=== PATIENT | female | born 1965 | race Caucasian/White ===

== ENCOUNTER → 2020-09-20 | Outpatient (CLI) | payer OTHER ==
[2020-09-20] VITALS (8 sets, daily range): BP systolic 94–107; BP diastolic 51–83
[~2020-09-20] VITALS: Ht 162.6 cm; Wt 91.6 kg
[~2020-09-20] MED LIST: ELIQUIS5 MG PO; LIPITOR 40 MG T40 M1 PO; MIDODRINE HCL10 MG PO
[2020-09-20 14:26] LABS: HEMATOCRIT 44.4 % (37.0-47.0); HEMOGLOBIN 14.5 gm/dL (12.0-15.0); MCH 30.7 pg (26.0-34.0); MCHC 32.7 g/dL (28.0-37.0); MCV 93.9 fL (80.0-100.0); PLATELET COUNT 264 thou/uL (150-400); RBC 4.74 mil/uL (4.20-5.00); RDW 13.9 % (10.5-14.5); WBC 7.4 thou/uL (4.0-11.0)
[2020-09-20 14:36] LABS: CALCIUM 9.8 mg/dL (8.5-10.1); CREATININE 10.2 mg/dL (0.6-1.0); POTASSIUM 4.6 mmol/L (3.5-5.1)
[2020-09-20 14:40] LABS: INR 0.98; PROTIME 10.7 Seconds (10.5-12.1)
[2020-09-20 15:21] LABS: ABSOLUTE NEUTROPHILS 4.3 thou/uL (1.4-8.2); BASOPHILS 0.9 % (0.0-2.0); EOSINOPHILS 1.5 % (0.0-3.0); LYMPHOCYTES 32.2 % (24.0-44.0); MONOCYTES 7.3 % (1.0-8.0); POLYS 58.1 % (36.0-66.0)
--- NOTE | 2020-09-26 17:08 | PATH ---
[facility] [address] [address] PATHOLOGY RPT PROCEDURE Name: ADRIAN RENEE Dior Room #: REG [facility] M.Judd.#: [id number] Admission: 09/20/20 Date of : 61 Discharge: Report #: [id number] Path Case #: [id number] [facility] Accession Number: [id number] . 01 Material submitted: . PART A: bone - BONE MARROW BIOPSY PART B: bone - BONE MARROW ASPIRATE CLOT PART C: bone - BONE MARROW ASPIRATE SLIDES PART D: bone - BONE MARROW PERIPHERAL SMEARS PART E: bone - BONE MARROW SENDOUT . 01 Clinical history: . 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 . . 02 Diagnosis: Bone marrow aspirate, biopsy, cell clot and peripheral blood: - Peripheral blood with no diagnostic abnormalities. - Hypercellular bone marrow with trilineage hematopoiesis, erythroid hyperlasia, mild dyspoiesis and involvement by plasma cell dyscrasia (approximately 10-15% plasma cells by immunohistochemical staining. - See comment. (BALJITW:michele; 09/24/2020) . . . . . Special studies report received from [facility], [facility], [address], [place], [address], on case [id number], labeled with their number [id number], dated 09/25/2020. . Flow Cytometry: Hematologic Neoplasia Assessment . Clinical History . . Indication for Study Evaluation for plasma cell myeloma . Specimen Bone Marrow . Viability 91% (7AAD exclusion) . Interpretation Bone Marrow: [address] [address] PATHOLOGY RPT PROCEDURE Name: ADRIAN RENEE Room #: REG [facility].#: [id number] Admission: 09/20/20 Date of : 61 Discharge: Report #: [id number] Path Case #: [id number] Abnormal/monotypic plasma cell population (1.3% of sample), consistent with a plasma cell neoplastic process . Comments Plasma cells are typically underrepresented by flow cytometry. Correlation with all available clinical, laboratory, and morphologic data is recommended. If needed, FISH testing (myeloma panel, plasma cell enrichment) is available. Please contact us if further testing for this sample is needed. . Populations Analyzed Myeloid Blasts: 0.5% No significant immunophenotypic abnormalities Lymphocytes: 9% B-cells: 1.2%, polytypic/polyclonal sIg light chain pattern T-cells: no significant abnormalities of the markers tested CD4+ T-cells: 5.1% (including 0.6% CD57+ cells) CD8+ T-cells: 2.2% (including 1.2% CD57+ cells) CD4:CD8: 2.3 NK cells: 0.5% Neutrophilic Cells: 83% No significant abnormalities of the markers tested Monocytic Cells: 2% No significant abnormalities of the markers tested Eosinophils: 2% No relative increase Basophils: 0.6% No relative increase Plasma Cells: 1.3% 1) Abnormal plasma cells, 1.3% of sample, CD45-/+, CD19-, CD20-, CD38+ (bright), CD56+, CD117-, CD138+, HLA DR-, cIg kappa+ 2) Polytypic plasma cells, <0.01% of sample Hematogones: 0.1% Normal B-cell precursors Remaining CD45 0% No significant reactivity with the markers Negative Events/ tested (may represent unlysed red blood cells, Debris: erythroid precursors, platelets, debris, etc.) (erythroid precursors may be underrepresented due to sample lysis/processing) . Morphologic Evaluation A slide was reviewed for quality assurance assistant purposes only. . Specimen Description Cell Yield: 9.50 x 10 and 6 . Reagent(s) Used CD2, CD3, CD4, CD5, CD7, CD8, CD10, CD11b, CD13, CD14, CD16, CD19, CD20, CD33, CD34, CD38, CD45, CD56, CD57, CD64, CD117, HLA-DR, kappa, lambda, CD138, CytoKappa, CytoLambda . [address] [address] PATHOLOGY RPT PROCEDURE Name: THELMAADRIAN Room #: REG [facility] Lavelle.#: [id number] Admission: 09/20/20 Date of : 61 Discharge: Report #: [id number] Path Case #: [id number] Electronically Signed by hJon Llamas MD at 04:31PM [facility] on 09/25/2020 at [employer] Jhon Llamas MD Pathologist . . Intended Use Flow cytometry is optimally used to immunophenotypically characterize abnormal populations when they are detected. Negative flow cytometry results do not exclude lymphoma or neoplasia. Possible false negative flow cytometry results may occur in, but are not limited to, the following: neoplastic cells in Hodgkin lymphoma are not typically adequately represented by routine clinical flow cytometry; neoplastic cells may be lost or inadequately represented due to degeneration, sample processing, sampling artifact, or patchy involvement; plasma cells are typically underrepresented by flow cytometry; immature cells/blasts may be underrepresented due to hemodilution; myeloproliferative disorders and low grade myelodysplasia may not have immunophenotypic abnormalities or increased blasts. Correlation with all available clinical, laboratory, and morphologic data is always necessary to assess for the possibility of false negative flow cytometry results and to establish a diagnosis. Each marker in this analysis was used to assess for potential antigenic abnormalities or to evaluate detected abnormalities. . Any image or images that accompany this report are visitor services representative images only and should not be used to render a diagnosis. . Disclaimer(s) This test was developed and its performance characteristics determined by [employer]. It has not been cleared or approved by the Food and Drug Administration. . [facility] is a business unit of [employer] a wholly-owned subsidiary of [employer]. . This test was performed at [facility]. at [address], [address] - Java Portal Developer: Toro Beltran MD. . For inquiries, the physician may contact Lab: [phone] . A complete copy of the report is on file. . Professional services performed by [employer]. at [address], [place] [address]. Technical services performed by [employer]. at [address], [address] [address] PATHOLOGY RPT PROCEDURE Name: ADRIAN RENEE Room #: REG [facility]#: [id number] Admission: 09/20/20 Date of : 61 Discharge: Report #: [id number] Path Case #: [id number]. . (CLW:zara 09/26/2020) . [facility] [place]/26/[place] 1102 Local . 02 Comment: Overall the bone marrow is hypercellular for the patient's age with trilineage hematopoiesis, erythroid hyperplasia, mild dyspoiesis and involvement by plasma cell dyscrasia. There are approximately 10-15% kappa restricted plasma cells by immunohistochemical staining. Correlation with clinical history, additional laboratory data and radiographic findings is required to determine the extent of the disease process. The dyspoiesis is mild and does not meet the morphologic criteria for myelodysplasia. Correlation with clinical history, additional laboratory data and cytogenetics is also recommended. The case is co-reviewed with Dr. Manoj Velasquez, who agrees on 09/25/20. . (CLW:michele; 09/24/2020) . 02 Electronically signed: . Valerie Bonilla MD, Pathologist NPI- [id number] . 01 Gross description: . A. Received in formalin labeled "Adrian Renee and bone marrow biopsy". Received is a bone marrow core biopsy measuring 2.0 cm in length and 0.3 cm in diameter. The specimen is entirely submitted in cassette A1 after light decalcification. . B. Received in formalin labeled "Adrian Renee and bone marrow aspirate (clot)". Received received are hemorrhagic clot fragments measuring in aggregate 2.5 x 2.0 x 0.2 cm. The specimen is entirely submitted in cassette B1.([facility]; 09/20/2020) [facility] 09/24/2020 0710 Local . 02 Microscopic: . CBC Data (09/20/20): WBC 7,400 /uL, RBC 4.74, hemoglobin 14.5 g/dL, hematocrit 44.4%, MCV 93.9 fL, MCH 30.7 pg, MCHC 32.7 g/dL, RDW 13.9%, and platelet count 264,000 /uL. White blood cell differential: segs 58.1%, lymphs 32.2%, monos 7.3%, eos 1.5%, and basos 0.9%. . Peripheral Blood Smear: Cytomorphological examination of the Acevedo's stained peripheral blood smear confirms the provided data. Red blood cells are normocytic and are without significant anisopoikilocytosis. White blood cells are predominantly segmented neutrophils and are without significant dyspoiesis [address] [address] PATHOLOGY RPT PROCEDURE Name: ADRIAN RENEE Room #: REG [facility] Mina#: [id number] Admission: 09/20/20 Date of : 61 Discharge: Report #: [id number] Path Case #: [id number] or significant left shift. Lymphocytes are predominantly small, round, and mature appearing with condensed chromatin and scant cytoplasm with admixed large granular lymphocytes and reactive appearing lymphocytes. On scanning, no markedly atypical lymphoid cells or plasma cells are seen. Monocytes are mature. Platelets are adequate in number and mainly normal in morphology with rare larger platelets noted. . Aspirate Smears: Cytomorphological examination of the Acevedo's stained aspirate smears shows spicules present. The overall cellularity is approximately 60%. The myeloid to erythroid ratio is 1:1. Full myeloid maturation is identified and is without significant dyspoiesis. Erythroid maturation is mildly dyserythropoietic with irregular nuclear contours, nuclear cytoplasmic dyssynchrony and mildly left shifted maturation. In a 500 cell differential, there are 1% blasts (no Ofelia rods are seen), 49% more differentiated myeloids, 41% erythroid precursors, 3% lymphocytes and 6% plasma cells. Megakaryocytes are proportional in number and both normal and abnormal in morphology with variable sizes and nuclear abnormalities. No lymphoid aggregates or markedly atypical lymphoid cells are seen. Plasma cells are without marked atypia. Iron stain of the aspirate smear shows 3/4+ iron positivity with spicules present. No ringed sideroblasts are identified. . Core Biopsy and Cell Clot: The decalcified bone marrow core biopsy is adequate. The bone marrow is focally disrupted with little intact bone marrow present for evaluation. The bone marrow appears hypercellular with an overall cellularity of approximately 60-70%. The myeloid to erythroid ratio is 1:1. Myeloid maturation is without significant dyspoiesis. Erythroid maturation is mildly dyserythropoietic. Megakaryocytes are normal in number and both normal and abnormal in morphology. No lymphoid aggregates or markedly atypical lymphoid cells are seen. Bony trabeculae and blood vessels are unremarkable. The cell clot has spicules present that are approximately 60% cellular. It is similar in differential morphology as previously described. . Properly controlled special stains are performed. . Block A1: Iron - 3/4+ iron positivity; Reticiulin - diffuse moderate (2-3/4+ reticulin fibrosis). . Block B1: Iron - 2/4+ iron positivity with rare spicules present. . To further quantify and characterize the plasma cell population and to identify cells in a tissue architectural context, prooperly controlled immunohistochemical stains are performed. [address] [address] PATHOLOGY RPT PROCEDURE Name: ADRIAN RENEE Room #: REG [facility].#: [id number] Admission: 09/20/20 Date of : 61 Discharge: Report #: [id number] Path Case #: [id number] . Block A1: CD138 - 10-15% plasma cells; Watson and lambda in situ hybridization - kappa restricted. . Block B1: CD138 - 10% plasma cells; Watson and lambda in situ hybridization - kappa restricted. . Flow Cytometry: Flow cytometric immunophenotypic analysis was performed at [facility]. The interpretation is "abnormal/monotypic plasma cell population (1.3% of sample), consistent with the plasma cell neoplastic process." There are 0.5% myeloid blasts. There are 9% lymphocytes. Of the lymphocytes, there are 1.2% polyclonal B-cells. T-cells have a CD4/CD8 ratio of 2.3 and no aberrant T-cell antigen expression. There are 1.3% plasma cells. Abnormal plasma cells comprise 1.3% of the sample and are characterized as CD45-/+, CD19-, CD20-, CD38+ (bright), CD56+, CD117-, CD138+, HLA-DR- and cyto kappa+. Please see separate flow cytometry report from [facility] ([id number]). (CLW:mml; 09/26/2020) . Cytogenetics: Cytogenetic chromosomal analysis is pending at [facility] ([id number]). (CLW:michele/mml; 09/24/2020) . 02 Pathologist provided ICD-10: D75.9 . 02 CPT . 091618, 898346, 161732, 312459, 777840, 352442, 729280, 708161, 625494, 423790, 251649, [id number], [id number] Specimen Comment: A courtesy copy of this report has been sent to [phone], [phone] Specimen Comment: [id number] Specimen Comment: Report sent to / DR ANGUIANO Performed at: 01 [facility] [address] [facility] [address], [place] [id number] MD Manpreet Seals MD Phone: [phone] Performed at: [address] [id number] MD Valerie Bonilla MD Phone: [phone]
== END | disposition home or self-care (01) ==
LOC: SPEC 12:14
PROVIDERS: ATTEND Nurse Practitioner
DX: D75.89 Other specified diseases of blood and blood-forming organs (principal); D70.4 Cyclic neutropenia; C90.00 Multiple myeloma not having achieved remission; I12.0 Hypertensive chronic kidney disease with stage 5 chronic kidney disease or end stage renal disease; N18.6 End stage renal disease; Z98.890 Other specified postprocedural states; Z79.899 Other long term (current) drug therapy; Z86.73 Personal history of transient ischemic attack (TIA), and cerebral infarction without residual deficits; Z79.01 Long term (current) use of anticoagulants